=== PATIENT | male | born 1970 | race African-American/Black ===

== ENCOUNTER 2021-10-21 07:11 | Emergency (ER) | payer BC, OTHER ==
[~2021-10-21] VITALS: Ht 175.3 cm; Wt 73.0 kg
[2021-10-21] MEDS ORDERED: METHYLPREDNISOLONE SOD SUCC 125 MG/2 ML VIAL IV ONE (07:45)
[2021-10-21] MEDS ORDERED: DIPHENHYDRAMINE 50MG/ML VIAL IV ONE (07:45)
[2021-10-21] MEDS ORDERED: FAMOTIDINE 20MG/2ML VIAL IV ONE (07:45)
[2021-10-21] MEDS ORDERED: FAMO-135 PO (10:33)
[2021-10-21] MEDS ORDERED: P50 PO (10:33)
[2021-10-21 10:58] VITALS: BP 137/100
== END 2021-10-21 11:00 | disposition home or self-care (01) ==
LOC: ER 07:11
DX: T78.3XXA Angioneurotic edema, initial encounter (principal); X58.XXXA Exposure to other specified factors, initial encounter; I10 Essential (primary) hypertension
CPT/HCPCS: 93005; 96374; 96375; 99284; J1200; J2930; J3490